=== PATIENT | female | born 1995 | race Caucasian/White ===

== ENCOUNTER 2017-09-08 09:34 | Day surgery (SDC) | payer BC, OTHER ==
[~2017-09-08] VITALS: Ht 157.5 cm; Wt 50.3 kg
[~2017-09-08 09:34] MED LIST: DEPO-SUBQ104 MG/0.6 SC; LO-DOSE ASPIRIN81 M2 PO; MOTRIN800 MG PO; STRATTERA80 MG PO
[2017-09-08] MEDS ORDERED: TYLENOL EXTRA500 MG PO (10:16)
[2017-09-08 10:25] VITALS: BP 118/66
[2017-09-09 12:06] LABS: INTERNAL CONTROL VALID? YES
== END 2017-09-08 12:02 | disposition home or self-care (01) ==
LOC: SDC
PROVIDERS: Orthopaedic Surgery
DX: M79.671 Pain in right foot (principal); W10.9XXA Fall (on) (from) unspecified stairs and steps, initial encounter; Z53.9 Procedure and treatment not carried out, unspecified reason
CPT/HCPCS: 84703; J0690; J2250; J3010